=== PATIENT | female | born 1985 | race African-American/Black ===

== ENCOUNTER 2017-02-28 11:13 | Emergency (ER) | payer MEDICAID ==
[~2017-02-28] VITALS: Ht 162.6 cm; Wt 93.0 kg
[~2017-02-28 11:13] MED LIST: AMOXICILLIN500 MG ORAL; CIPROFLOXACIN500 M2 ORAL; CYCLOBENZAPRINE10 MG ORAL; IBUPROFEN800 MG ORAL; NORCO 5-325 TA1 EACH ORAL; TYLENOL EXTRA500 MG ORAL
[2017-02-28] MEDS ORDERED: NKM (11:22)
[2017-02-28 11:24] VITALS: BP 119/83
[2017-02-28] MEDS ORDERED: Dexamethasone 4mg/ml vial IM ONE (11:30)
[2017-02-28] MEDS ORDERED: AMOXICILLIN500 MG ORAL (11:32)
[2017-02-28] MEDS ORDERED: IBUPROFEN600 MG ORAL (11:32)
[2017-02-28 11:41] VITALS: BP 119/83
--- NOTE | 2017-02-28 12:42 | Emergency Room Report ---
History of Present Illness General Chief Complaint: Sore Throat Source: Patient Present Illness HPI 31-year-old female presents ED complaining of sore throat. Patient states symptoms started yesterday. Pain is throbbing, 8/10, nonradiating. Worse with swallowing. Denies fevers or chills. Denies cough. Denies recent travel. No other aggravating or relieving factors. Denies any other systems symptoms Allergies: Coded Allergies: [place] (Unverified Allergy, Unknown, 12/28/14) Patient History Past Medical History: none Past Surgical History: none Pertinent Family History: none Social History: Denies: smoking, alcohol use, drug use Last Menstrual Period: IUD Now: No Immunizations: UTD Reviewed Nursing Documentation: PMH: Agreed, PSxH: Agreed Nursing Documentation-PMH Past Medical History: No Stated History Review of Systems All Other Systems: negative except mentioned in HPI Physical Exam Vital Signs Date Time Temp Pulse Resp B/P (MAP) Pulse Ox O2 Delivery O2 Flow Rate FiO2 02/28/17 11:17 98.2 96 16 119/83 98 Room Air Sp02 EP Interpretation: reviewed, normal General Appearance: no apparent distress, alert, GCS 15, non-toxic Head: normocephalic Eyes: bilateral eye normal inspection, bilateral eye PERRL ENT: hearing grossly normal, no angioedema, normal voice, TMs + canals normal, pharyngeal erythema, tonsillar exudate Neck: full range of motion, supple/symm/no masses Respiratory: chest non-tender, lungs clear, normal breath sounds, speaking full sentences Cardiovascular #1: normal inspection Gastrointestinal: normal inspection Rectal: deferred Genitourinary: no CVA tenderness Musculoskeletal: normal inspection Neurologic: alert, oriented x3, responsive, motor strength/tone normal, sensory intact, speech normal Psychiatric: normal inspection Skin: normal inspection Lymphatic: normal inspection Medical Decision Making Diagnostic Impression: Primary Impression: Pharyngitis Qualified Codes: J02.9 - Acute pharyngitis, unspecified ER Course Hospital Course 31-year-old female presents to ED complaining of sore throat Differential diagnoses include: URI, pharyngitis, otitis media Clinical course Patient placed on stretcher. After initial history, physical exam reveals a female in no acute distress. Bilateral TM unremarkable. There is pharyngeal erythema w/ tonsillar exudates. No lymphadenopathy. Clinical findings consistent with pharyngitis. given decadron in ED Diagnosis - pharyngitis Stable and discharged home with prescriptions for Motrin, amoxicillin. Instructed to followup with PMD. return to ED if symptoms recur or worsen Last Vital Signs Date Time Temp Pulse Resp B/P (MAP) Pulse Ox O2 Delivery O2 Flow Rate FiO2 02/28/17 11:41 98.2 16 119/83 98 Room Air 02/28/17 11:17 96 Status: improved Disposition: HOME, SELF-CARE Condition: Stable Scripts Ibuprofen* (MOTRIN*) 600 Mg Tablet 600 MG ORAL Q8H Y for For Pain, #30 TAB 0 Refills Prov: JESSE GILBERT M.D. 02/28/17 Amoxicillin* (AMOXIL*) 500 Mg Capsule 500 MG ORAL THREE TIMES A DAY, #21 CAP Prov: JESSE GILBERT M.D. 02/28/17 Referrals: PENNIE VILLAFUERTE (PCP) Departure Forms: Return to Work Return to Work Date: Mar 02, 2017 Work Restrictions: None Patient Instructions: Pharyngitis, [id number] JESSE GILBERT M.D. Feb 28, 2017 12:42
== END 2017-02-28 11:41 | disposition home or self-care (01) ==
LOC: EMR 11:31
DX: J02.9 Acute pharyngitis, unspecified (principal)
CPT/HCPCS: 96372; 99284; J1100

== ENCOUNTER 2017-04-22 14:19 | Emergency (ER) | payer MEDICAID ==
[~2017-04-22] VITALS: Ht 162.6 cm; Wt 83.9 kg
[~2017-04-22 14:19] MED LIST changes: +IBUPROFEN600 MG ORAL; +NKM
[2017-04-22 14:32] VITALS: BP 124/87
[2017-04-22] MEDS ORDERED: Mylanta II UD 30ml ORAL ONE (14:45)
[2017-04-22] MEDS ORDERED: Metoclopramide 10mg/2ml Inj IVP ONE (14:45)
[2017-04-22] MEDS ORDERED: Dicyclomine HCl 10mg/5ml oral soln ORAL ONE (14:45)
[2017-04-22] MEDS ORDERED: Lidocaine 2% Visc 15ml soln ORAL ONE (14:45)
--- NOTE | 2017-04-22 15:22 | Emergency Room Report ---
History of Present Illness General Chief Complaint: Abdominal Pain Source: Patient Present Illness HPI This is a 31-year-old female who presented after increased epigastric pain as well as nausea and diarrhea. The patient reported having multiple episodes of watery diarrhea. Patient had not been vomiting. She reported having no increased. She reported having a moderate headache. 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 Allergies: Coded Allergies: [place] (Unverified Allergy, Unknown, 12/28/14) Patient History Past Medical History: see triage record Reviewed Nursing Documentation: PMH: Agreed, PSxH: Agreed Nursing Documentation-PMH Past Medical History: No Stated History Review of Systems All Other Systems: negative except mentioned in HPI Physical Exam Vital Signs Date Time Temp Pulse Resp B/P (MAP) Pulse Ox O2 Delivery O2 Flow Rate FiO2 04/22/17 14:22 98.4 89 20 124/80 99 Room Air Sp02 EP Interpretation: reviewed, normal General Appearance: normal inspection, well appearing, no apparent distress, alert, GCS 15 Head: atraumatic ENT: normal ENT inspection, hearing grossly normal, normal voice Neck: normal inspection, full range of motion, supple, no bony tend Respiratory: normal inspection, lungs clear, normal breath sounds, no respiratory distress, no retraction, no wheezing Cardiovascular #1: regular rate, rhythm, no edema Gastrointestinal: normal inspection, normal bowel sounds, non tender, soft, no guarding, no hernia Genitourinary: no CVA tenderness Musculoskeletal: normal inspection, back normal, normal range of motion Neurologic: normal inspection, alert, responsive, speech normal Psychiatric: normal inspection, judgement/insight normal, mood/affect normal Skin: normal inspection, normal color, no rash Medical Decision Making Diagnostic Impression: Primary Impression: Abdominal pain Additional Impression: Viral gastroenteritis ER Course Patient presented for abdominal pain. Differential diagnoses included ischemic bowel, appendicitis, perforated viscus, abdominal aortic aneurysm, inferior myocardial infarction, viral gastroenteritis Because of complexity of patient's case laboratory testing and imaging studies were ordered. The patient's symptoms are consistent with a viral gastroenteritis. Patient was noted to have watery diarrhea without any noted mucus or blood. The patient was started on IV fluids as well as high given medications for abdominal pain. The patient is advised not to return to work until symptoms resolve. Patient is advised to return if she began having worsening pain persistent vomiting or other concerns. She was given written discharge instructions for abdominal pain. Labs Test 04/22/17 14:45 04/22/17 15:40 White Blood Count 6.0 K/UL (4.8-10.8) Red Blood Count 4.29 M/UL (4.20-5.40) Hemoglobin 12.8 G/DL (12.0-16.0) Hematocrit 39.7 % (37.0-47.0) Mean Corpuscular Volume 93 FL (80-99) Mean Corpuscular Hemoglobin 29.9 PG (27.0-31.0) Mean Corpuscular Hemoglobin Concent 32.3 G/DL (32.0-36.0) Red Cell Distribution Width 11.9 % (11.6-14.8) Platelet Count 288 K/UL (150-450) Mean Platelet Volume 7.0 FL (6.5-10.1) Neutrophils (%) (Auto) 59.4 % (45.0-75.0) Lymphocytes (%) (Auto) 26.1 % (20.0-45.0) Monocytes (%) (Auto) 13.6 % (1.0-10.0) Eosinophils (%) (Auto) 0.2 % (0.0-3.0) Basophils (%) (Auto) 0.7 % (0.0-2.0) Sodium Level 137 MMOL/L (136-145) Potassium Level 3.7 MMOL/L (3.5-5.1) Chloride Level 102 MMOL/L (98-107) Carbon Dioxide Level 25 MMOL/L (21-32) Anion Gap 10 mmol/L (5-15) Blood Urea Nitrogen 10 mg/dL (7-18) Creatinine 1.0 MG/DL (0.55-1.30) Estimat Glomerular Filtration Rate > 60 mL/min (>60) Glucose Level 75 MG/DL (74-106) Calcium Level 9.2 MG/DL (8.5-10.1) Total Bilirubin 0.5 MG/DL (0.2-1.0) Aspartate Amino Transf (AST/SGOT) 21 U/L (15-37) Alanine Aminotransferase (ALT/SGPT) 21 U/L (12-78) Alkaline Phosphatase 76 U/L (46-116) Troponin I 0.000 ng/mL (0.000-0.056) Total Protein 8.1 G/DL (6.4-8.2) Albumin 3.6 G/DL (3.4-5.0) Globulin 4.5 g/dL Albumin/Globulin Ratio 0.8 (1.0-2.7) Lipase 112 U/L (73-393) Urine Color Pale yellow Urine Appearance Clear Urine pH 5 (4.5-8.0) Urine Specific [place] 1.015 (1.005-1.035) Urine Protein Negative (NEGATIVE) Urine Glucose (UA) Negative (NEGATIVE) Urine Ketones 2+ (NEGATIVE) Urine Occult Blood 5+ (NEGATIVE) Urine Nitrite Negative (NEGATIVE) Urine Bilirubin Negative (NEGATIVE) Urine Urobilinogen Normal MG/DL (0.0-1.0) Urine Leukocyte Esterase 2+ (NEGATIVE) Urine RBC 5-10 /HPF (0 - 2) Urine WBC 2-4 /HPF (0 - 2) Urine Squamous Epithelial Cells Few /LPF (NONE/OCC) Urine Bacteria Few /HPF (NONE) Urine HCG, Qualitative Negative Last Vital Signs Date Time Temp Pulse Resp B/P (MAP) Pulse Ox O2 Delivery O2 Flow Rate FiO2 04/22/17 14:32 98.4 99 22 124/87 98 Room Air Status: improved Disposition: HOME, SELF-CARE Condition: Stable Scripts Loperamide HCl (Loperamide) 2 Mg Capsule 2 MG ORAL ONCE, #20 CAP 0 Refills Prov: Christiano Romeo 04/22/17 Dicyclomine Hcl* (BENTYL*) 10 Mg Capsule 10 MG ORAL FOUR TIMES A DAY, #20 CAP Prov: Christiano Romeo 04/22/17 Referrals: [facility],REFERRING (PCP) Christiano Romeo Apr 22, 2017 15:22
[2017-04-22 15:34] LABS: BASOPHILS % (AUTO) 0.7 % (0.0-2.0); EOSINOPHILS % (AUTO) 0.2 % (0.0-3.0); LYMPHOCYTES % (AUTO) 26.1 % (20.0-45.0); MEAN CORPUSCULAR HEMOGLOBIN 29.9 PG (27.0-31.0); MEAN CORPUSCULAR HGB CONC 32.3 G/DL (32.0-36.0); MEAN CORPUSCULAR VOLUME 93 FL (80-99); MONOCYTES % (AUTO) 13.6 % (1.0-10.0); NEUTROPHILS % (AUTO) 59.4 % (45.0-75.0); PLATELET COUNT 288 K/UL (150-450); RED BLOOD COUNT 4.29 M/UL (4.20-5.40); RED CELL DISTRIBUTION WIDTH 11.9 % (11.6-14.8)
[2017-04-22 15:45] LABS: ALANINE AMINOTRANSFERASE 21 U/L (12-78); ALBUMIN/GLOBULIN RATIO 0.8 (1.0-2.7); ANION GAP 10 mmol/L (5-15); ASPARTATE AMINO TRANSFERASE 21 U/L (15-37); CALCIUM 9.2 MG/DL (8.5-10.1); CARBON DIOXIDE 25 MMOL/L (21-32); CHLORIDE 102 MMOL/L (98-107); GLOMERULAR FILTRATION RATE > 60 mL/min (>60); LIPASE 112 U/L (73-393); POTASSIUM 3.7 MMOL/L (3.5-5.1); SODIUM 137 MMOL/L (136-145); TOTAL PROTEIN 8.1 G/DL (6.4-8.2)
[2017-04-22] MEDS ORDERED: IMODIUM2 MG ORAL (15:46)
[2017-04-22] MEDS ORDERED: BENTYL10 MG ORAL (15:46)
[2017-04-22 15:56] LABS: APPEARANCE,URINE CLEAR; KETONES,URINE 2+ (NEGATIVE); LEUKOCYTE ESTERASE ,URINE 2+ (NEGATIVE); NITRITE,URINE NEGATIVE (NEGATIVE); PH,URINE 5 (4.5-8.0); PROTEIN,URINE NEGATIVE (NEGATIVE); UROBILINOGEN,URINE NORMAL MG/DL (0.0-1.0)
[2017-04-22 16:06] LABS: BACTERIA,URINE FEW /HPF; SQUAMOUS EPITHELIAL CELL,UR FEW /LPF (NONE/OCC)
[2017-04-22 16:10] VITALS: BP 125/69
== END 2017-04-22 16:10 | disposition home or self-care (01) ==
LOC: EMR 14:45
DX: A08.4 Viral intestinal infection, unspecified (principal)
CPT/HCPCS: 36415; 80053; 81003; 81025; 83690; 84484; 85025; 96374; 96375; 99284; J2765

== ENCOUNTER 2017-08-22 13:24 | Emergency (ER) | payer MEDICAID ==
[~2017-08-22] VITALS: Ht 162.6 cm; Wt 89.8 kg
[~2017-08-22 13:24] MED LIST changes: +BENTYL10 MG ORAL; +IMODIUM2 MG ORAL
[2017-08-22] MEDS ORDERED: ACETAMINOPHEN325 M1 ORAL (13:55)
[2017-08-22 14:10] VITALS: BP 122/79
[2017-08-22] MEDS ORDERED: IBUPROFEN600 MG ORAL (14:23)
[2017-08-22] MEDS ORDERED: CYCLOBENZAPRINE10 MG ORAL (14:23)
[2017-08-22] MEDS ORDERED: NORCO 5-325 TA1 EACH ORAL (14:23)
[2017-08-22 14:26] VITALS: BP 122/79
--- NOTE | 2017-08-22 15:00 | Emergency Room Report ---
History of Present Illness General Chief Complaint: Back Injury Source: Patient Present Illness HPI 31-year-old female presents ED for evaluation. Patient complaining of neck and back pain. Started approximately 3 weeks ago when lifting heavy boxes at work. Patient notes persistent pain to her neck and lower back since. Has been prescribed physical therapy by employee health but states it is not helping. Also taking [id number] Tylenol without relief. Pain is a 10 out of 10, nonradiating. Denies any bowel or bladder incontinence. Denies any leg or motor weakness. No other aggravating relieving factors. Denies any other associated symptoms Allergies: Coded Allergies: [place] (Unverified Allergy, Unknown, 12/28/14) Patient History Past Medical History: none Past Surgical History: none Pertinent Family History: none Social History: Denies: smoking, alcohol use, drug use Last Menstrual Period: [place] IUD. Now: No : 2 Para: 2 Immunizations: UTD Reviewed Nursing Documentation: PMH: Agreed, PSxH: Agreed Nursing Documentation-PMH Past Medical History: No Stated History Review of Systems All Other Systems: negative except mentioned in HPI Physical Exam Vital Signs Date Time Temp Pulse Resp B/P (MAP) Pulse Ox O2 Delivery O2 Flow Rate FiO2 08/22/17 13:49 98.1 97 17 122/79 98 Room Air 98.1 Sp02 EP Interpretation: reviewed, normal General Appearance: no apparent distress, alert, GCS 15, non-toxic Head: normocephalic Eyes: bilateral eye normal inspection, bilateral eye PERRL ENT: normal ENT inspection Neck: no bony tend, tender lateral Respiratory: normal inspection Cardiovascular #1: normal inspection Gastrointestinal: normal inspection Rectal: deferred Genitourinary: no CVA tenderness, no vertebral tenderness Musculoskeletal: tender - paraspinal lumbar tenderness Neurologic: alert, oriented x3, responsive, motor strength/tone normal, sensory intact, speech normal Psychiatric: normal inspection Skin: normal inspection Lymphatic: normal inspection Medical Decision Making Diagnostic Impression: Primary Impression: Low back strain Qualified Codes: S39.012A - Strain of muscle, fascia and tendon of lower back , initial encounter Additional Impression: Neck strain Qualified Codes: S16.1XXA - Strain of muscle, fascia and tendon at neck level , initial encounter ER Course Hospital Course 31-year-old female presents ED complaining of lower back pain and neck pain x 3 weeks Differential diagnoses include: pyelonephritis, kidney stone, muscle strain, Lspine fracture Clinical course Patient placed on stretcher. After initial history, physical exam reveals a female in no acute distress. There is no midline cervical or lumbar tenderness. There is paraspinal tenderness noted. No focal neurological deficits. Reviewed EMR patient has had prior episodes of sciatica and muscular pain in the past. I offered Toradol here but patient declined. Patient given Motrin We will prescribe NSAIDs, muscle relaxers and medication for break through pain. Recommend continuing the physical therapy. Recommended followup with PMD for ortho evaluation Diagnosis - low back strain, neck strain Stable and discharged to home with prescription for MOtrin, NOrco, Flexeril. Followup with PMD. Return to ED if symptoms recur or worsen Last Vital Signs Date Time Temp Pulse Resp B/P (MAP) Pulse Ox O2 Delivery O2 Flow Rate FiO2 08/22/17 14:26 98.1 17 122/79 98 Room Air 208.6 08/22/17 13:49 97 Status: improved Disposition: HOME, SELF-CARE Condition: Stable Scripts Cyclobenzaprine Hcl* (FLEXERIL*) 10 Mg Tablet 10 MG ORAL TID Y for Muscle Spasm, #20 TAB Prov: JESSE GILBERT M.D. 08/22/17 Hydrocodone Bit/Acetaminophen 5-325* (NORCO 5-325*) 1 Each Tablet 1 TAB ORAL Q6H Y for For Pain, #20 TAB 0 Refills Prov: JESSE GILBERT M.D. 08/22/17 Ibuprofen* (MOTRIN*) 600 Mg Tablet 600 MG ORAL Q8H Y for For Pain, #30 TAB 0 Refills Prov: JESSE GILBERT M.D. 08/22/17 [facility],REFERRING (PCP) Departure Forms: Return to Work Return to Work Date: Aug 25, 2017 Work Restrictions: No Heavy Lifting Patient Instructions: Back Pain, Adult JESSE GILBERT M.D. Aug 22, 2017 15:00
== END 2017-08-22 14:26 | disposition home or self-care (01) ==
LOC: EMR 14:20
DX: S39.012A Strain of muscle, fascia and tendon of lower back, initial encounter (principal); S16.1XXA Strain of muscle, fascia and tendon at neck level, initial encounter; X50.0XXA Overexertion from strenuous movement or load, initial encounter; Y92.89 Other specified places as the place of occurrence of the external cause
CPT/HCPCS: 99283

== ENCOUNTER 2017-08-24 23:35 | Emergency (ER) | payer MEDICAID ==
[~2017-08-24] VITALS: Ht 162.6 cm; Wt 88.5 kg
[~2017-08-24 23:35] MED LIST changes: +ACETAMINOPHEN325 M1 ORAL
[2017-08-24 23:45] VITALS: BP 120/78
[2017-08-25] MEDS ORDERED: ROBAXIN-750750 MG PO (00:13)
[2017-08-25] MEDS ORDERED: Ketorolac 30mg Inj IM ONE (00:15)
[2017-08-25] MEDS ORDERED: Methocarbamol 750mg tab ORAL ONE (00:15)
--- NOTE | 2017-08-25 00:25 | Emergency Room Report ---
History of Present Illness General Chief Complaint: Back Pain-No Injury Source: Patient Present Illness HPI 31-year-old female p/w back pain and neck pain for 7 days. Patient states pain started when She was at work after lifting boxes. Pain is "ALL OVER" worse with movement. There are no alleviating factors. Patient took pain medications with minimal relief. Denies trauma. Denies lower extremity weakness/numbness, no bowel/bladder retention or incontinence, saddle anesthesia. Denies fever, chills, abdominal pain, n/v, dysuria/hematuria. No history of IVDA Allergies: Coded Allergies: [place] (Unverified Allergy, Unknown, 12/28/14) Patient History Past Medical History: see triage record Past Surgical History: none Pertinent Family History: none Last Menstrual Period: IUD Now: No : 2 Reviewed Nursing Documentation: PMH: Agreed, PSxH: Agreed Nursing Documentation-PMH Past Medical History: No Stated History Review of Systems All Other Systems: negative except mentioned in HPI Physical Exam Vital Signs Date Time Temp Pulse Resp B/P (MAP) Pulse Ox O2 Delivery O2 Flow Rate FiO2 08/24/17 23:38 97.8 82 18 113/74 97 Room Air 97.9 Sp02 EP Interpretation: reviewed, normal General Appearance: alert, GCS 15, non-toxic, mild distress Head: normocephalic, atraumatic Eyes: bilateral eye normal inspection, bilateral eye PERRL, bilateral eye EOMI ENT: normal ENT inspection, normal pharynx, normal voice, moist mucus membranes Neck: normal inspection, full range of motion, supple Respiratory: normal inspection, lungs clear, normal breath sounds, no respiratory distress, no retraction, no wheezing, speaking full sentences, chest symmetrical Cardiovascular #1: normal inspection, regular rate, rhythm, no edema, normal capillary refill Cardiovascular #2: 2+ radial (R), 2+ radial (L) Gastrointestinal: normal inspection, non tender, soft, non-distended, no guarding Musculoskeletal: other - Generalized paraspinal tenderness throughout neck and back, no midline tenderness, full range of motion all extremities Neurologic: normal inspection, alert, oriented x3, responsive, motor strength/ tone normal, sensory intact, normal gait, speech normal Psychiatric: normal inspection, judgement/insight normal, memory normal Skin: normal inspection, normal color, no rash, warm/dry, well hydrated, normal turgor Medical Decision Making Diagnostic Impression: Primary Impression: Back pain ER Course 31-year-old female with back pain for one week DDX: Likely musculoskeletal back pain vs. muscular strain vs. sciatica Lumbar fracture is unlikely given patients age, no midline tenderness, no history of trauma, and that patient is ambulatory. Therefore, at this time no imaging is indicated Serious diagnoses such as cord compression, epidural abscess is unlikely in this patient given the clinical scenario and abscess of neurological symptoms or findings. Patient appears nontoxic. Plan: Toradol and Robaxin ER course: Patient has remained nontoxic appearing and ambulatory in the ED. Pain improved w/ medications Disposition: Patient will be discharged to home with prescription of robaxin. Strict precautions discussed with patient on when to emergently return to the ED which includes severe/worsening back pain, leg weakness/numbness, urinary retention/incontinence, fever or chills, which may indicate severe illness. Patient is to follow up with their PMD within 5 days. Patient agrees with plan. Please note that this Emergency Department Report was dictated using [employer] Systems[employer] foreman technology software, occasionally this can lead to erroneous entry secondary to interpretation by the dictation equipment. Last Vital Signs Date Time Temp Pulse Resp B/P (MAP) Pulse Ox O2 Delivery O2 Flow Rate FiO2 08/24/17 23:45 97.8 86 17 120/78 99 Room Air 97.8 Disposition: HOME, SELF-CARE Condition: Improved Scripts Methocarbamol* (ROBAXIN-750*) 750 Mg Tablet 750 MG PO QID, #28 TAB 0 Refills Prov: Simeon Elkins M.D. 08/25/17 Patient Instructions: Back Pain, Adult Simeon Elkins M.D. Aug 25, 2017 00:25
[2017-08-25 00:40] VITALS: BP 113/76
[2017-08-25 00:48] VITALS: BP 113/76
== END 2017-08-25 00:48 | disposition home or self-care (01) ==
LOC: EMR 23:52
DX: M54.9 Dorsalgia, unspecified (principal); M54.2 Cervicalgia
CPT/HCPCS: 96372; 99283; J1885

== ENCOUNTER 2017-08-30 13:54 | Emergency (ER) | payer MEDICAID ==
[~2017-08-30] VITALS: Ht 162.6 cm; Wt 88.5 kg
[~2017-08-30 13:54] MED LIST changes: +ROBAXIN-750750 MG PO
--- NOTE | 2017-08-30 14:31 | Emergency Room Report ---
History of Present Illness General Chief Complaint: Back Injury Source: Patient Present Illness HPI Pt. presents to the ED c/o back pain that radiates up into the neck that is 9/ 10 in severity and described as "soreness, and tightness" s/p strain after lifting heavy boxes at work 25 days ago. pt. has been doing PT, taking muscle relaxers and anti-inflammatories with continued symptoms. pt. requests work note for light duty until she can be seen by PMD and Chiropractor next week. pt. denies new trauma or fall. denies fevers or chills. Denies spinal procedures /injections or hx of CA. Denies numbness tingling or loss of sensation or gross motor movements of the extremities, incontinence of bowel or bladder. Denies CP , Palpitations, LOC, AMS, dizziness, Changes in Vision, Sensation, paresthesias , or a sudden severe headache. Allergies: Coded Allergies: [place] (Unverified Allergy, Unknown, 12/28/14) Patient History Past Medical History: see triage record Past Surgical History: none Pertinent Family History: none Last Menstrual Period: IUD Now: No : 3 Para: 2 Reviewed Nursing Documentation: PMH: Agreed, PSxH: Agreed Nursing Documentation-PMH Past Medical History: No Stated History Review of Systems All Other Systems: negative except mentioned in HPI Physical Exam Vital Signs Date Time Temp Pulse Resp B/P (MAP) Pulse Ox O2 Delivery O2 Flow Rate FiO2 08/30/17 13:59 98.1 86 18 112/69 98 Room Air 98.1 Sp02 EP Interpretation: reviewed, normal General Appearance: no apparent distress, alert, GCS 15, non-toxic Head: normocephalic, atraumatic ENT: hearing grossly normal, normal voice Neck: full range of motion Respiratory: chest non-tender, lungs clear, normal breath sounds, no wheezing, speaking full sentences Cardiovascular #1: regular rate, rhythm, normal capillary refill Genitourinary: no CVA tenderness Musculoskeletal: back normal, gait/station normal, normal range of motion, tender - diffuse paraspinal ttp, no midline ttp, no obvious deformities, or step -offs. FROM Neurologic: alert, oriented x3, responsive, motor strength/tone normal, sensory intact, normal gait, speech normal, grossly normal Psychiatric: judgement/insight normal Skin: normal color, no rash, warm/dry, well hydrated Medical Decision Making PA Attestation Dr. stout is my supervising Physician whom patient management has been discussed with. Diagnostic Impression: Primary Impression: History of injury of muscle Additional Impression: Back pain Qualified Codes: M54.5 - Low back pain ER Course Pt. presents to the ED c/o back pain that radiates up into the neck that is 9/ 10 in severity and described as "soreness, and tightness" s/p strain after lifting heavy boxes at work 25 days ago. pt. has been doing PT, taking muscle relaxers and anti-inflammatories with continued symptoms. pt. requests work note for light duty until she can be seen by PMD and Chiropractor next week. pt. denies new trauma or fall. denies fevers or chills. Denies spinal procedures /injections or hx of CA. Denies numbness tingling or loss of sensation or gross motor movements of the extremities, incontinence of bowel or bladder. Denies CP , Palpitations, LOC, AMS, dizziness, Changes in Vision, Sensation, paresthesias , or a sudden severe headache. Ddx considered but are not limited to Fracture, dislocation, contusion, epidural abscess, Sprain/Strain/Spasm Vital signs: are WNL, pt. is afebrile H&PE are most consistent with muscle strain - with no improvement after conservative treatment, standard of care and physical therapy. may require outpatient MRI imaging. ORDERS: none required at this time.- Pt. declines pain medication. ED INTERVENTIONS: none required at this time. --I do not identify an emergent condition at this time. With current presentation, pt. is stable for close outpatient follow up and conservative treatment. D/w pt. to return promptly to ED with worsening or new symptoms.- Pt. (and or responsible constitution party) verbalizes' understanding and agreement with proposed treatment plan.proposed treatment plan. DISCHARGE: At this time pt. is stable for d/c to home. Will provide printed patient care instructions, and any necessary prescriptions. Care plan and follow up instructions have been discussed with the patient prior to discharge. Last Vital Signs Date Time Temp Pulse Resp B/P (MAP) Pulse Ox O2 Delivery O2 Flow Rate FiO2 08/30/17 13:59 98.1 86 18 112/69 98 Room Air 98.1 Disposition: HOME, SELF-CARE Condition: Stable Referrals: [facility],REFERRING (PCP) Departure Forms: Return to Work Return to Work Date: Sep 03, 2017 Work Restrictions: No Heavy Lifting Other Restrictions: light duty x 1 week. - follow up with workers' comp. or PMD Return to Full Activity: Sep 06, 2017 Patient Instructions: Back Injury Prevention, Muscle Strain, [id number] Additional Instructions: Take medications as directed. Follow up with a Primary Care Provider in 3-5 days, even if your symptoms have resolved. --Please review list of primary care clinics, if you do not already have a primary care provider Return sooner to ED if new symptoms occur, or current symptoms become worse. - Please note that this Emergency Department Report was dictated using [employer] technology software, occasionally this can lead to erroneous entry secondary to interpretation by the dictation equipment. Gretchen Anne Aug 30, 2017 14:31
[2017-08-30 14:39] VITALS: BP 112/69
[2017-08-30 14:40] VITALS: BP 112/69
== END 2017-08-30 14:41 | disposition home or self-care (01) ==
LOC: EMR 14:22
DX: M54.9 Dorsalgia, unspecified (principal); M54.2 Cervicalgia
CPT/HCPCS: 99282

== ENCOUNTER 2020-01-08 12:47 | Emergency (ER) | payer MEDICAID ==
[~2020-01-08] VITALS: Ht 162.6 cm; Wt 101.2 kg
--- NOTE | 2020-01-08 13:01 | NUR ---
ED Nurse Note:pt. came with right ankle pain after twisting it yesterday
--- NOTE | 2020-01-08 13:28 | Emergency Room Report ---
History of Present Illness General Chief Complaint: Lower Extremity Injury Source: Patient Present Illness HPI 34-year-old female with no past medical history presents with right ankle injury onset yesterday. She reports she was getting out of her car when the floor was uneven and she twisted her right ankle. She is able to ambulate but not able to put a lot of pressure on that foot. Pain is rated 7 out of 10, aggravated by movement. No medications taken. Allergies: Coded Allergies: [place] (Unverified Allergy, Unknown, 12/28/14) COVID-19 Screening Contact w/high risk pt: No Experienced COVID-19 symptoms?: No COVID-19 Testing performed [employer] CL[employer]: No Patient History Past Medical History: see triage record Last Menstrual Period: 11/2019 Now: No Reviewed Nursing Documentation: PMH: Agreed; PSxH: Agreed Nursing Documentation-PMH Past Medical History: No Stated History Review of Systems All Other Systems: negative except mentioned in HPI Physical Exam Vital Signs Date Time Temp Pulse Resp B/P (MAP) Pulse Ox O2 Delivery O2 Flow Rate FiO2 01/08/20 12:52 99.3 86 20 118/78 (91) 96 Room Air Sp02 EP Interpretation: reviewed, normal General Appearance: normal inspection, well appearing, no apparent distress Head: normocephalic, atraumatic Musculoskeletal: other - Mild tenderness to the right lateral malleolus. No swelling. Full ROM. Able to ambulate with slight limp. Pulses intact. Sensation intact. Neurologic: alert, distal neuro normal, oriented x3, sensory intact Procedures Splinting Splinting : Consent: Verbal Location: Right ankle Pre-Made Type: JOE wrap Pre-Proc Neuro Vasc Exam: normal Post-Proc Neuro Vasc Exam: normal Patient Tolerated: Well Complications: None Medical Decision Making PA Attestation Dr. Nobles is my supervising physician whom patient management and care has been discussed with. Diagnostic Impression: Primary Impression: Ankle sprain Qualified Codes: S93.401A - Sprain of unspecified ligament of right ankle, initial encounter ER Course Pt. presents to the ED c/o right ankle injury yesterday. Ddx considered but are not limited to fracture, dislocation, sprain, Achilles tendon rupture, ligamentous injury. Vital signs: are WNL, pt. is afebrile H&PE are most consistent with ankle sprain. ORDERS: Ankle x-ray with no evidence of acute fracture or dislocation. ED INTERVENTIONS: Joe wrap applied. DISCHARGE: At this time pt. is stable for d/c to home. Will provide printed patient care instructions, and any necessary prescriptions. Advised to follow up outpatient in 1-2 days. Care plan and follow up instructions have been discussed with the patient prior to discharge. Other X-Ray Diagnostic Results Other X-Ray Diagnostic Results : X-Ray ordered: Right ankle # of Views/Limited Vs Complete: 3 View Indication: Pain EP Interpretation: Yes PA Xray: Interpretation reviewed, by supervising MD, and agrees with findings. Interpretation: no dislocation, no soft tissue swelling, no fractures Impression: No acute disease Last Vital Signs Date Time Temp Pulse Resp B/P (MAP) Pulse Ox O2 Delivery O2 Flow Rate FiO2 01/08/20 12:52 99.3 86 20 118/78 (91) 96 Room Air Disposition: HOME, SELF-CARE Condition: Stable Alyssa Trent Jan 08, 2020 13:28
--- NOTE | 2020-01-08 14:46 | Diagnostic Imaging Report ---
Indication: Trauma, pain Technique: 3 views of the left ankle Comparison: none Findings: There is a small plantar spur. No acute fractures. No dislocations. The joint spaces are preserved Impression: Negative
[2020-01-08 15:10] VITALS: BP 118/78
--- NOTE | 2020-01-08 15:10 | NUR ---
ED Nurse Note:acewrap was placed on right ankle Pt cleared by health care Provider for discharge. DC instructions/prescription was given and explained to pt and verbalized understanding of teachings. All medical deviecs such as ID band removed. Pt is AAO x4, ambulatory and left with all personal belongings.
== END 2020-01-08 15:15 | disposition home or self-care (01) ==
LOC: EMR 13:53
DX: S93.401A Sprain of unspecified ligament of right ankle, initial encounter (principal); X50.1XXA Overexertion from prolonged static or awkward postures, initial encounter; Y92.9 Unspecified place or not applicable
CPT/HCPCS: 73600; Z7502; 99283